=== PATIENT | female | born 1935 | race Caucasian/White ===

== ENCOUNTER → 2017-03-11 | Outpatient (CLI) | payer MEDICARE, MEDICAID ==
[~2017-03-11] MED LIST: ALPR0.25 PO; CALC-386 PO; METO25TA62 PO; OMEP20CA5 OR; RIVA20TA PO; TIOTCAP INH
[2017-03-11 09:38] LABS: Basophils # (auto) 0 uL; Basophils % (auto) 0.6 % (0.0-2.0); Eosinophils # (auto) 0.1 uL; Eosinophils % (auto) 1.1 % (0.0-7.0); Hematocrit 37.9 % (36.0-46.0); Hemoglobin 12.5 g/dL (12.2-16.2); Lymphocytes # (auto) 1.8 uL; Lymphocytes % (auto) 29.1 % (10.0-50.0); Mean Corpuscular Hemoglobin 31.1 pg (28.0-32.0); Mean Corpuscular Hgb Conc. 32.9 g/dL (32.0-36.0); Mean Corpuscular Volume 94.7 fL (80.0-100.0); Monocytes # (auto) 0.6 uL; Monocytes % (auto) 9.4 % (0.0-12.0); Neutrophils # (auto) 3.6 uL; Neutrophils % (auto) 59.8 % (37.0-80.0); Platelet Count (auto) 287 10^3/uL (140-450)
[2017-03-11 09:46] LABS: Urine Bilirubin Negative (Negative); Urine Color Yellow (Yellow); Urine Glucose Normal (Normal); Urine Ketone TRACE (Negative); Urine Mucus FEW (None Seen); Urine Nitrite Negative (Negative); Urine RBC 61 /hpf (0 - 4); Urine WBC Clumps PRESENT /hpf (None Seen)
[2017-03-11 09:55] LABS: Urine Blood 3+ /uL (Negative)
[2017-03-11 10:10] LABS: Albumin 3.2 g/dL (3.4-5.0); BUN/Creatinine Ratio 15.5; Bilirubin, Total 0.7 mg/dL (0.2-1.0); Calcium 9.3 mg/dL (8.5-10.1); Potassium 3.7 mmol/L (3.5-5.1); Total Protein 7.5 g/dL (6.4-8.2)
== END | disposition home or self-care (01) ==
LOC: LAB 08:48
DX: I10 Essential (primary) hypertension (principal)
CPT/HCPCS: 36415; 80053; 80061; 81001; 84443; 85025

== ENCOUNTER → 2017-10-07 | Outpatient (CLI) | payer MEDICARE, MEDICAID ==
[~2017-10-07] MED LIST changes: -OMEP20CA5 OR; +OMEP20CA74 OR
[2017-10-07 09:53] LABS: Allen Test Yes; Base Excess -0.1 mmol/L (-2.0-2.0); Blood 02Sat 93.8 % (96-100); Blood COHb 0.1 % (0.5-1.5); Blood MetHb 0.1 % (0.0-1.5); HCO3 24.1 mmol/L (22-26.0); HHb 6.2 % (0.0-5.0); MODE ROOM AIR; O2Hb 93.6 % (94.0-97.0); PO2 71.4 mmHg (80.0-100.0); PO2(T) 71.4 mmHg (80.0-100.0); Sample Type Arterial
== END | disposition home or self-care (01) ==
LOC: RT 09:16
PROVIDERS: ATTEND Family Medicine
DX: J44.9 Chronic obstructive pulmonary disease, unspecified (principal)
CPT/HCPCS: 36600; 82805

== ENCOUNTER → 2018-03-21 | Outpatient (CLI) | payer MEDICARE, MEDICAID ==
[2018-03-21 10:08] LABS: Albumin 3.7 g/dL (3.4-5.0); BUN/Creatinine Ratio 19.1; Bilirubin, Total 0.4 mg/dL (0.2-1.0); Calcium 9.5 mg/dL (8.5-10.1); Potassium 4.3 mmol/L (3.5-5.1); Total Protein 7.5 g/dL (6.4-8.2)
[2018-03-21 10:37] LABS: Urine Bacteria NONE SEEN /hpf (None Seen); Urine Blood Negative /uL (Negative); Urine Specific Gravity 1.008 (1.001-1.035); Urine WBC 7 /hpf (0 - 5)
[2018-03-21 14:06] LABS: Basophils # (auto) 0.1 uL; Eosinophils # (auto) 0.2 uL; Eosinophils % (auto) 4.5 % (0.0-7.0); Hematocrit 42.5 % (36.0-46.0); Hemoglobin 13.8 g/dL (12.2-16.2); Lymphocytes # (auto) 1.7 uL; Lymphocytes % (auto) 34.6 % (10.0-50.0); Mean Corpuscular Hemoglobin 30.8 pg (28.0-32.0); Mean Corpuscular Hgb Conc. 32.5 g/dL (32.0-36.0); Mean Corpuscular Volume 94.7 fL (80.0-100.0); Monocytes # (auto) 0.3 uL; Monocytes % (auto) 5.6 % (0.0-12.0); Neutrophils # (auto) 2.7 uL; Neutrophils % (auto) 53.3 % (37.0-80.0); Nucleated Red Blood Cells % 0.5 %; Platelet Count (auto) 213 10^3/uL (140-450); Red Blood Cells 4.49 10^6/uL (4.0-5.20); Red Cell Distribution Width 13.9 % (11.8-14.3)
== END | disposition home or self-care (01) ==
LOC: LAB 08:58
PROVIDERS: ATTEND Family Medicine
DX: I12.9 Hypertensive chronic kidney disease with stage 1 through stage 4 chronic kidney disease, or unspecified chronic kidney disease (principal); N18.3 Chronic kidney disease, stage 3 (moderate); I26.99 Other pulmonary embolism without acute cor pulmonale; F41.1 Generalized anxiety disorder; J44.9 Chronic obstructive pulmonary disease, unspecified
CPT/HCPCS: 36415; 80053; 80061; 81001; 82306; 82607; 84443; 85025

== ENCOUNTER 2018-04-22 10:16 | Emergency (ER) | payer MEDICARE, MEDICAID ==
[~2018-04-22] VITALS: Ht 172.7 cm; Wt 71.2 kg
[2018-04-22 10:59] LABS: Basophils # (auto) 0.1 uL; Basophils % (auto) 1.3 % (0.0-2.0); Eosinophils # (auto) 0.2 uL; Eosinophils % (auto) 2.8 % (0.0-7.0); Hematocrit 40.6 % (36.0-46.0); Hemoglobin 13.4 g/dL (12.2-16.2); Lymphocytes # (auto) 2.4 uL; Lymphocytes % (auto) 39.1 % (10.0-50.0); Mean Corpuscular Hemoglobin 30.6 pg (28.0-32.0); Mean Corpuscular Hgb Conc. 33.2 g/dL (32.0-36.0); Mean Corpuscular Volume 92.3 fL (80.0-100.0); Monocytes # (auto) 0.5 uL; Neutrophils % (auto) 48.8 % (37.0-80.0); Platelet Count (auto) 206 10^3/uL (140-450); Red Blood Cells 4.39 10^6/uL (4.0-5.20); Red Cell Distribution Width 13.6 % (11.8-14.3); White Blood Cell 6.2 10^3/uL (4.4-10.8)
[2018-04-22 11:11] LABS: Urine WBC None Seen /hpf (0 - 5)
[2018-04-22 11:15] LABS: INR 1.13 (0.9-1.15); Partial Thromboplastin Time 35.7 sec (23.78-33.04)
[2018-04-22 11:21] LABS: Urine Bacteria FEW /hpf (None Seen); Urine Blood Negative /uL (Negative); Urine Specific Gravity 1.006 (1.001-1.035)
[2018-04-22 11:23] LABS: Alanine Aminotransferase 15 U/L (13-56); Albumin 3.8 g/dL (3.4-5.0); Alkaline Phosphatase 66 U/L (45-117); Anion Gap 7 (5-15); Aspartate Aminotransferase 16 U/L (15-37); BUN/Creatinine Ratio 18.8; Bilirubin, Total 0.6 mg/dL (0.2-1.0); Blood Urea Nitrogen 33 mg/dL (7-18); Carbon Dioxide 27 mmol/L (21-32); Chloride 105 mmol/L (98-107); GFR African American 36 mL/min; GFR Non-African American 29 mL/min; Glucose 88 mg/dL (74-106); Potassium 4.1 mmol/L (3.5-5.1); Sodium 139 mmol/L (136-145); Total Protein 7.7 g/dL (6.4-8.2)
[2018-04-22 11:51] VITALS: BP 159/92
== END 2018-04-22 11:56 | disposition home or self-care (01) ==
LOC: ER 10:19
DX: R55 Syncope and collapse (principal); M19.90 Unspecified osteoarthritis, unspecified site; I12.9 Hypertensive chronic kidney disease with stage 1 through stage 4 chronic kidney disease, or unspecified chronic kidney disease; N18.9 Chronic kidney disease, unspecified; K21.9 Gastro-esophageal reflux disease without esophagitis; J44.9 Chronic obstructive pulmonary disease, unspecified; Z86.711 Personal history of pulmonary embolism
CPT/HCPCS: 36415; 70450; 71045; 80053; 81001; 83880; 84484; 85025; 85610; 85730; 93005

== ENCOUNTER → 2018-04-28 | Outpatient (CLI) | payer MEDICARE, MEDICAID | END | disposition home or self-care (01) | LOC: XY 10:25 | PROVIDERS: ATTEND Family Medicine | DX: H81.49 Vertigo of central origin, unspecified ear (principal); I12.9 Hypertensive chronic kidney disease with stage 1 through stage 4 chronic kidney disease, or unspecified chronic kidney disease; N18.3 Chronic kidney disease, stage 3 (moderate); K21.9 Gastro-esophageal reflux disease without esophagitis | CPT/HCPCS: 93886 ==

== ENCOUNTER → 2018-07-08 | Outpatient (CLI) | payer MEDICARE, MEDICAID ==
[2018-07-08 12:13] LABS: Basophils # (auto) 0.1 uL; Basophils % (auto) 1.3 % (0.0-2.0); Eosinophils # (auto) 0.1 uL; Eosinophils % (auto) 2.4 % (0.0-7.0); Hematocrit 39.9 % (36.0-46.0); Hemoglobin 13.7 g/dL (12.2-16.2); Lymphocytes # (auto) 1.7 uL; Lymphocytes % (auto) 37.9 % (10.0-50.0); Mean Corpuscular Hemoglobin 31.3 pg (28.0-32.0); Mean Corpuscular Hgb Conc. 34.4 g/dL (32.0-36.0); Monocytes # (auto) 0.2 uL; Monocytes % (auto) 5.1 % (0.0-12.0); Neutrophils # (auto) 2.5 uL; Neutrophils % (auto) 53.3 % (37.0-80.0); Nucleated Red Blood Cells % 0.1 %; Platelet Count (auto) 198 10^3/uL (140-450); Red Blood Cells 4.38 10^6/uL (4.0-5.20); Red Cell Distribution Width 14.4 % (11.8-14.3); White Blood Cell 4.6 10^3/uL (4.4-10.8)
[2018-07-08 12:32] LABS: INR 1.09 (0.9-1.15); Partial Thromboplastin Time 33.8 sec (23.78-33.04); Prothrombin Time 11.6 sec (9.27-12.13)
[2018-07-08 13:04] LABS: Albumin 3.8 g/dL (3.4-5.0); BUN/Creatinine Ratio 17.8; Bilirubin, Total 0.6 mg/dL (0.2-1.0); Calcium 9.2 mg/dL (8.5-10.1); Potassium 4.3 mmol/L (3.5-5.1); Total Protein 7.9 g/dL (6.4-8.2)
[2018-07-08 15:27] LABS: Urine Blood 1+ /uL (Negative); Urine Specific Gravity 1.013 (1.001-1.035)
== END | disposition home or self-care (01) ==
LOC: LAB 11:45
DX: Z01.82 Encounter for allergy testing (principal); H25.11 Age-related nuclear cataract, right eye; D68.4 Acquired coagulation factor deficiency; J44.9 Chronic obstructive pulmonary disease, unspecified; F41.9 Anxiety disorder, unspecified; Z79.01 Long term (current) use of anticoagulants
CPT/HCPCS: 36415; 80053; 81003; 85025; 85610; 85730

== ENCOUNTER → 2018-08-29 | Outpatient (CLI) | payer MEDICARE, MEDICAID ==
[2018-08-29 12:50] LABS: Basophils # (auto) 0.1 uL; Eosinophils # (auto) 0.1 uL; Eosinophils % (auto) 1.7 % (0.0-7.0); Hematocrit 38.4 % (36.0-46.0); Hemoglobin 12.7 g/dL (12.2-16.2); Lymphocytes % (auto) 31.6 % (10.0-50.0); Mean Corpuscular Hemoglobin 29.8 pg (28.0-32.0); Mean Corpuscular Hgb Conc. 33.2 g/dL (32.0-36.0); Mean Corpuscular Volume 89.8 fL (80.0-100.0); Monocytes # (auto) 0.6 uL; Monocytes % (auto) 8.8 % (0.0-12.0); Neutrophils # (auto) 3.6 uL; Neutrophils % (auto) 56.9 % (37.0-80.0); Nucleated Red Blood Cells % 0.1 %; Platelet Count (auto) 278 10^3/uL (140-450); Red Blood Cells 4.27 10^6/uL (4.0-5.20); Red Cell Distribution Width 14.5 % (11.8-14.3); White Blood Cell 6.4 10^3/uL (4.4-10.8)
[2018-08-29 13:09] LABS: INR 1.09 (0.9-1.15); Partial Thromboplastin Time 33.9 sec (23.78-33.04); Prothrombin Time 11.6 sec (9.27-12.13)
[2018-08-29 13:12] LABS: Urine Blood Negative /uL (Negative); Urine Specific Gravity 1.005 (1.001-1.035)
[2018-08-29 13:22] LABS: Albumin 3.6 g/dL (3.4-5.0); Calcium 8.6 mg/dL (8.5-10.1)
[2018-08-29 13:24] LABS: BUN/Creatinine Ratio 17.2
[2018-08-29 13:54] LABS: Bilirubin, Total 0.5 mg/dL (0.2-1.0); Total Protein 7.5 g/dL (6.4-8.2)
== END | disposition home or self-care (01) ==
LOC: LAB 12:25
PROVIDERS: ATTEND Specialist
DX: Z01.812 Encounter for preprocedural laboratory examination (principal); H25.12 Age-related nuclear cataract, left eye; D68.311 Acquired hemophilia; Z79.01 Long term (current) use of anticoagulants; J43.9 Emphysema, unspecified; Z87.891 Personal history of nicotine dependence
CPT/HCPCS: 36415; 80053; 81003; 85025; 85610; 85730

== ENCOUNTER → 2019-03-18 | Outpatient (CLI) | payer MEDICARE, MEDICAID ==
[2019-03-18 09:16] LABS: Basophils # (auto) 0.1 uL; Eosinophils # (auto) 0.1 uL; Hematocrit 41.2 % (36.0-46.0); Hemoglobin 13.7 g/dL (12.2-16.2); Lymphocytes # (auto) 1.8 uL; Lymphocytes % (auto) 26.3 % (10.0-50.0); Mean Corpuscular Hemoglobin 31.6 pg (28.0-32.0); Mean Corpuscular Hgb Conc. 33.3 g/dL (32.0-36.0); Mean Corpuscular Volume 94.6 fL (80.0-100.0); Monocytes # (auto) 0.5 uL; Monocytes % (auto) 7.5 % (0.0-12.0); Neutrophils # (auto) 4.3 uL; Neutrophils % (auto) 63.2 % (37.0-80.0); Nucleated Red Blood Cells % 0.1 %; Platelet Count (auto) 251 10^3/uL (140-450); Red Blood Cells 4.35 10^6/uL (4.0-5.20); Red Cell Distribution Width 15.1 % (11.8-14.3); White Blood Cell 6.8 10^3/uL (4.4-10.8)
[2019-03-18 09:30] LABS: Urine Bacteria MANY /hpf (None Seen); Urine Blood TRACE /uL (Negative); Urine Specific Gravity 1.009 (1.001-1.035); Urine WBC 116 /hpf (0 - 5); Urine WBC Clumps PRESENT /hpf (None Seen)
[2019-03-18 09:39] LABS: Potassium 3.8 mmol/L (3.5-5.1)
[2019-03-18 09:55] LABS: Albumin 3.9 g/dL (3.4-5.0); BUN/Creatinine Ratio 16.8; Bilirubin, Total 0.7 mg/dL (0.2-1.0); Calcium 9.4 mg/dL (8.5-10.1)
== END | disposition home or self-care (01) ==
LOC: LAB 07:48
PROVIDERS: ATTEND Family Medicine
DX: I48.0 Paroxysmal atrial fibrillation (principal); K21.9 Gastro-esophageal reflux disease without esophagitis; I10 Essential (primary) hypertension
CPT/HCPCS: 36415; 80053; 80061; 81001; 82607; 85025

== ENCOUNTER 2019-08-21 18:35 | Emergency (ER) | payer MEDICARE, MEDICAID ==
[~2019-08-21] VITALS: Ht 172.7 cm; Wt 71.2 kg
[2019-08-21 19:27] VITALS: BP 206/116
[2019-08-21] MEDS ORDERED: cloNIDine HCL 0.1 MG TAB PO ONE (19:30)
[2019-08-21 20:54] LABS: Basophils # (auto) 0.1 uL; Basophils % (auto) 1.2 % (0.0-2.0); Eosinophils # (auto) 0.1 uL; Eosinophils % (auto) 1.6 % (0.0-7.0); Hematocrit 39.6 % (36.0-46.0); Hemoglobin 13.1 g/dL (12.2-16.2); Lymphocytes # (auto) 1.7 uL; Lymphocytes % (auto) 33.1 % (10.0-50.0); Mean Corpuscular Hemoglobin 32.7 pg (28.0-32.0); Mean Corpuscular Hgb Conc. 33.2 g/dL (32.0-36.0); Mean Corpuscular Volume 98.6 fL (80.0-100.0); Monocytes # (auto) 0.4 uL; Neutrophils # (auto) 2.9 uL; Neutrophils % (auto) 56.1 % (37.0-80.0); Platelet Count (auto) 230 10^3/uL (140-450); Red Blood Cells 4.02 10^6/uL (4.0-5.20); Red Cell Distribution Width 14.9 % (11.8-14.3); White Blood Cell 5.2 10^3/uL (4.4-10.8)
[2019-08-21 21:05] LABS: Chloride 106 mmol/L (98-107); Potassium 4.2 mmol/L (3.5-5.1); Sodium 138 mmol/L (136-145)
[2019-08-21 21:14] LABS: Alanine Aminotransferase 15 U/L (13-56); Albumin 3.8 g/dL (3.4-5.0); Alkaline Phosphatase 69 U/L (45-117); Anion Gap 9 (5-15); Aspartate Aminotransferase 21 U/L (15-37); BUN/Creatinine Ratio 20.8; Bilirubin, Total 0.4 mg/dL (0.2-1.0); Blood Urea Nitrogen 36 mg/dL (7-18); Calcium 9.2 mg/dL (8.5-10.1); Carbon Dioxide 23 mmol/L (21-32); GFR African American 36 mL/min; GFR Non-African American 30 mL/min; Glucose 95 mg/dL (74-106)
== END 2019-08-21 23:09 | disposition left against medical advice (07) ==
LOC: ER 18:37
DX: S46.911A Strain of unspecified muscle, fascia and tendon at shoulder and upper arm level, right arm, initial encounter (principal); R51 Headache; Z53.21 Procedure and treatment not carried out due to patient leaving prior to being seen by health care provider; V43.62XA Car passenger injured in collision with other type car in traffic accident, initial encounter; Y93.89 Activity, other specified; Y92.89 Other specified places as the place of occurrence of the external cause; Y99.8 Other external cause status
CPT/HCPCS: 36415; 70450; 71045; 72125; 73090; 80053; 84484; 85025

== ENCOUNTER 2023-10-24 15:40 | Emergency (ER) | payer MEDICARE, MEDICAID ==
[~2023-10-24] VITALS: Ht 172.7 cm; Wt 62.3 kg
[~2023-10-24 15:40] MED LIST changes: -METO25TA62 PO; +METO25TA93 PO
[2023-10-24 16:28] VITALS: BP 139/104; PULSE 98; RESP 18; O2SAT 98
[2023-10-24] MEDS ORDERED: DexAMETHasone SOD PHOS 10MG/1ML VIAL INJ IM ONE (16:45)
[2023-10-24 17:49] LABS: Basophils # (auto) 0.1 10 ^3/uL (0-0.2); Basophils % (auto) 1.3 % (0.0-2.0); Eosinophils # (auto) 0.1 10 ^3/uL (0-0.8); Eosinophils % (auto) 1.2 % (0.0-7.0); Hematocrit 39.5 % (36.0-46.0); Hemoglobin 13.1 g/dL (12.2-16.2); Lymphocytes # (auto) 1.8 10 ^3/uL (0.4-5.4); Lymphocytes % (auto) 24.2 % (10.0-50.0); Mean Corpuscular Hemoglobin 33.4 pg (28.0-32.0); Mean Corpuscular Hgb Conc. 33.1 g/dL (32.0-36.0); Mean Corpuscular Volume 100.9 fL (80.0-100.0); Monocytes # (auto) 0.6 10 ^3/uL (0-1.3); Monocytes % (auto) 8.6 % (0.0-12.0); Neutrophils # (auto) 4.8 10 ^3/uL (1.6-8.6); Neutrophils % (auto) 64.7 % (37.0-80.0); Nucleated Red Blood Cells % 0.2 %; Red Blood Cells 3.91 10^6/uL (4.0-5.20); Red Cell Distribution Width 14.3 % (11.8-14.3); White Blood Cell 7.4 10^3/uL (4.4-10.8)
[2023-10-24 18:25] LABS: Albumin 4.5 g/dL (3.2-4.8); Alkaline Phosphatase 73 U/L (46-116); Anion Gap 13 (5-15); Aspartate Aminotransferase 16 U/L (13-40); BUN/Creatinine Ratio 14.9 (10.0-20.0); Bilirubin, Total 0.7 mg/dL (0.2-1.0); Blood Urea Nitrogen 28 mg/dL (9-23); Calcium 9.5 mg/dL (8.7-10.4); Carbon Dioxide 21 mmol/L (20-30); Chloride 101 mmol/L (98-107); Glucose 82 mg/dL (74-106); Lipase 55 U/L (12-53); Potassium 4.2 mmol/L (3.5-5.1); Sodium 135 mmol/L (136-145); Total Protein 7.7 g/dL (5.7-8.2); Uric Acid 8.5 mg/dL (3.1-7.8)
[2023-10-24 18:38] LABS: Alanine Aminotransferase < 9 U/L (7-40)
== END 2023-10-24 22:27 | disposition left against medical advice (07) ==
LOC: ER 15:40
DX: M79.645 Pain in left finger(s) (principal); M79.672 Pain in left foot; R22.42 Localized swelling, mass and lump, left lower limb; Z53.21 Procedure and treatment not carried out due to patient leaving prior to being seen by health care provider
CPT/HCPCS: 36415; 73130; 73630; 80053; 83690; 83880; 84484; 84550; 85025; 99281; J1100

== ENCOUNTER 2023-10-28 09:43 | Emergency (ER) | payer MEDICARE, MEDICAID ==
[~2023-10-28] VITALS: Ht 172.7 cm; Wt 62.8 kg
[2023-10-28 10:21] VITALS: BP 140/80; PULSE 107; RESP 20; TEMP 97.7; O2SAT 97
[2023-10-28] MEDS ORDERED: CEPH500T PO (12:35)
[2023-10-28] MEDS ORDERED: cefTRIAXone SOD 500 MG VL IM ONE (12:45)
== END 2023-10-28 12:55 | disposition home or self-care (01) ==
LOC: ER 09:43
DX: R22.32 Localized swelling, mass and lump, left upper limb (principal); J44.9 Chronic obstructive pulmonary disease, unspecified; I10 Essential (primary) hypertension; K21.9 Gastro-esophageal reflux disease without esophagitis; Z87.891 Personal history of nicotine dependence; Z79.899 Other long term (current) drug therapy
CPT/HCPCS: 73130; 96372; 99283; J0696

== ENCOUNTER 2024-05-23 22:05 | Emergency (ER) | payer OTHER, MEDICAID ==
[~2024-05-23] VITALS: Ht 172.7 cm; Wt 65.0 kg
[2024-05-23] MEDS: ONDANSETRON ODT 4 MG TAB PO ONE (00:15)
[2024-05-23] MEDS: HYDROcodone-ACET 5/325MG TAB PO ONE (00:15)
[~2024-05-23 22:05] MED LIST changes: +CEPH500T PO
[2024-05-23 22:17] VITALS: RESP 18; O2SAT 98
[2024-05-23 23:00] VITALS: TEMP 98.9
[2024-05-23] MEDS: LIDOCAINE 1% HCL (LOCAL ANESTH.) INJ 20ML MDV SC ONE (23:45)
[2024-05-24] MEDS: LIDOCAINE W/ EPINEPHRINE 1.5 % INJ 5ML AMP IJ ONE (03:05)
[2024-05-24] MEDS: LIDOCAINE W/ EPINEPHRINE 1% 20ML VIAL ONE (03:05)
[2024-05-24] MEDS ORDERED: ACET-1304 PO (03:13)
[2024-05-24 04:00] VITALS: BP 173/71; PULSE 63; RESP 13; O2SAT 95
== END 2024-05-24 04:10 | disposition home or self-care (01) ==
LOC: EDBD 22:05 → ER 22:05
DX: S81.812A Laceration without foreign body, left lower leg, initial encounter (principal); J44.9 Chronic obstructive pulmonary disease, unspecified; K21.9 Gastro-esophageal reflux disease without esophagitis; I12.9 Hypertensive chronic kidney disease with stage 1 through stage 4 chronic kidney disease, or unspecified chronic kidney disease; N18.9 Chronic kidney disease, unspecified; Z87.891 Personal history of nicotine dependence; W26.8XXA Contact with other sharp object(s), not elsewhere classified, initial encounter; Y93.89 Activity, other specified; Y92.89 Other specified places as the place of occurrence of the external cause; Y99.8 Other external cause status
CPT/HCPCS: 12002; 99285; J2001; Q0162

== ENCOUNTER 2024-06-21 13:07 | Inpatient (IN) | payer OTHER, MEDICAID ==
[~2024-06-21] VITALS: Ht 172.7 cm; Wt 59.4 kg
[~2024-06-21 13:07] MED LIST changes: +ACET-1304 PO
[2024-06-21 13:40] VITALS: PULSE 91; RESP 18; O2SAT 96
[2024-06-21 14:04] LABS: Basophils # (auto) 0.1 10 ^3/uL (0-0.2); Basophils % (auto) 0.7 % (0.0-2.0); Eosinophils # (auto) 0.4 10 ^3/uL (0-0.8); Eosinophils % (auto) 2.7 % (0.0-7.0); Hematocrit 32.1 % (36.0-46.0); Hemoglobin 10.7 g/dL (12.2-16.2); Lymphocytes # (auto) 0.7 10 ^3/uL (0.4-5.4); Lymphocytes % (auto) 5.3 % (10.0-50.0); Mean Corpuscular Hemoglobin 31.2 pg (28.0-32.0); Mean Corpuscular Hgb Conc. 33.2 g/dL (32.0-36.0); Monocytes # (auto) 0.3 10 ^3/uL (0-1.3); Monocytes % (auto) 2.4 % (0.0-12.0); Neutrophils # (auto) 11.5 10 ^3/uL (1.6-8.6); Neutrophils % (auto) 88.9 % (37.0-80.0); Platelet Count (auto) 269 10^3/uL (140-450); Red Blood Cells 3.42 10^6/uL (4.0-5.20); Red Cell Distribution Width 15.7 % (11.8-14.3); White Blood Cell 12.9 10^3/uL (4.4-10.8)
[2024-06-21 14:20] LABS: Alanine Aminotransferase 18 U/L (7-40); Albumin 3.5 g/dL (3.2-4.8); Alkaline Phosphatase 72 U/L (46-116); Anion Gap 8 (5-15); Aspartate Aminotransferase 41 U/L (13-40); BUN/Creatinine Ratio 12.6 (10.0-20.0); Bilirubin, Total 0.5 mg/dL (0.2-1.0); Blood Urea Nitrogen 22 mg/dL (9-23); Carbon Dioxide 24 mmol/L (20-30); Chloride 106 mmol/L (98-107); Glucose 137 mg/dL (74-106); Potassium 4.1 mmol/L (3.5-5.1); Sodium 138 mmol/L (136-145)
[2024-06-21] MEDS: CEFEPIME 2GM/50ML NS 50 ML IV ONE (15:45)
[2024-06-21] MEDS: AZITHROMYCIN 250 MG TAB PO ONE (15:46)
[2024-06-21] MEDS ORDERED: NITROGLYCERIN 0.4 MG SL TAB SL PRN (18:00)
[2024-06-21] MEDS ORDERED: MORPHINE SULFATE INJ 2 MG/ml SYRG IV PRN (18:00)
[2024-06-21] MEDS ORDERED: ONDANSETRON HCL 4 MG/2 ML VIAL IV PRN (18:00)
[2024-06-21] MEDS: PIPERACILLIN-TAZOB 3.375GM 100 ML IV ONE (18:33)
[2024-06-21 19:20] LABS: Erythrocyte Sedimentation Rate 73 mm/hr (0-20)
[2024-06-21 19:30] VITALS: PULSE 91; RESP 18; O2SAT 96
[2024-06-21] MEDS: SODIUM CHLOR 0.9% PF (SALINE LOCK) 10ML VIAL/SYR IV SCH (21:43)
[2024-06-21] MEDS ORDERED: METOPROLOL SUCCINATE XL 50 MG TAB PO SCH (22:00)
[2024-06-22] VITALS (12 sets, daily range): BP systolic 98–134; BP diastolic 52–77; PULSE 72–96; RESP 17–20; TEMP 98.1–100.7; O2SAT 0–97
[2024-06-22] MEDS: PIPERACILLIN-TAZOB 3.375GM 100 ML IV SCH (02:22)
[2024-06-22] MEDS: PANTOPRAZOLE 40 MG TAB PO SCH (06:37)
[2024-06-22] MEDS ORDERED: ZOFR4T PO (07:21)
[2024-06-22] MEDS ORDERED: FAMO-12 PO (07:21)
[2024-06-22] MEDS ORDERED: GLAT1INJ SC (08:14)
[2024-06-22 08:34] LABS: Basophils # (auto) 0 10 ^3/uL (0-0.2); Basophils % (auto) 0.3 % (0.0-2.0); Eosinophils # (auto) 0.3 10 ^3/uL (0-0.8); Eosinophils % (auto) 2.8 % (0.0-7.0); Hematocrit 28.8 % (36.0-46.0); Hemoglobin 9.6 g/dL (12.2-16.2); Lymphocytes % (auto) 8.5 % (10.0-50.0); Mean Corpuscular Hemoglobin 31.1 pg (28.0-32.0); Mean Corpuscular Hgb Conc. 33.3 g/dL (32.0-36.0); Mean Corpuscular Volume 93.5 fL (80.0-100.0); Monocytes # (auto) 0.6 10 ^3/uL (0-1.3); Monocytes % (auto) 4.7 % (0.0-12.0); Neutrophils # (auto) 9.8 10 ^3/uL (1.6-8.6); Neutrophils % (auto) 83.7 % (37.0-80.0); Platelet Count (auto) 255 10^3/uL (140-450); Red Blood Cells 3.08 10^6/uL (4.0-5.20); Red Cell Distribution Width 15.4 % (11.8-14.3); White Blood Cell 11.7 10^3/uL (4.4-10.8)
[2024-06-22 09:28] LABS: Triglycerides 103 mg/dL (< 150)
[2024-06-22 09:29] LABS: LDL Cholesterol 41 mg/dL (< 100)
[2024-06-22 09:30] LABS: Cholesterol 98 mg/dL (< 200); HDL Cholesterol 25 mg/dL (40-59)
[2024-06-22] MEDS ORDERED: VANCOMYCIN PER PHARMACY 0 MG IV SCH (10:45)
[2024-06-22] MEDS: VANCOMYCIN 1GM/200ML 200 ML IV ONE (12:43)
[2024-06-22] MEDS: RIVAROXABAN 20 MG TAB PO SCH (17:04)
[2024-06-22] MEDS: CEFEPIME 2GM/50ML 50 ML IV SCH (21:22)
[2024-06-22] MEDS: METOPROLOL TARTRATE 25 MG TAB PO SCH (21:24)
[2024-06-22] MEDS: ACETAMINOPHEN 325 MG TAB PO PRN (21:25)
[2024-06-22] MEDS ORDERED: CEFEPIME 1GM/ 50ML 50 ML IV SCH (22:00)
[2024-06-23] VITALS (8 sets, daily range): BP systolic 108–150; BP diastolic 45–72; PULSE 64–85; RESP 16–20; TEMP 97.3–98; O2SAT 90–99
[2024-06-23 06:52] LABS: Chloride 110 mmol/L (98-107); Potassium 4.1 mmol/L (3.5-5.1); Sodium 139 mmol/L (136-145)
[2024-06-23 06:53] LABS: Anion Gap 7 (5-15); Carbon Dioxide 22 mmol/L (20-30)
[2024-06-23 06:54] LABS: Calcium 8.2 mg/dL (8.7-10.4)
[2024-06-23 06:59] LABS: BUN/Creatinine Ratio 18.3 (10.0-20.0); Blood Urea Nitrogen 23 mg/dL (9-23); Glucose 95 mg/dL (74-106)
[2024-06-23 07:00] LABS: Basophils # (auto) 0.1 10 ^3/uL (0-0.2); Basophils % (auto) 0.7 % (0.0-2.0); Eosinophils # (auto) 0.5 10 ^3/uL (0-0.8); Eosinophils % (auto) 4.2 % (0.0-7.0); Hematocrit 29.9 % (36.0-46.0); Hemoglobin 9.7 g/dL (12.2-16.2); Lymphocytes # (auto) 1.1 10 ^3/uL (0.4-5.4); Lymphocytes % (auto) 9.7 % (10.0-50.0); Mean Corpuscular Hemoglobin 30.9 pg (28.0-32.0); Mean Corpuscular Hgb Conc. 32.4 g/dL (32.0-36.0); Mean Corpuscular Volume 95.5 fL (80.0-100.0); Monocytes # (auto) 0.6 10 ^3/uL (0-1.3); Monocytes % (auto) 5.5 % (0.0-12.0); Neutrophils # (auto) 9.4 10 ^3/uL (1.6-8.6); Neutrophils % (auto) 79.9 % (37.0-80.0); Platelet Count (auto) 261 10^3/uL (140-450); Red Blood Cells 3.13 10^6/uL (4.0-5.20); Red Cell Distribution Width 15.8 % (11.8-14.3); White Blood Cell 11.7 10^3/uL (4.4-10.8)
[2024-06-23] MEDS: PHOSPHORUS PO SCH (10:00)
[2024-06-23] MEDS: VITAMI PO SCH (10:00)
[2024-06-23] MEDS: TIOTROPIUM BROMIDE MONOHYDRATE IN SCH (10:00)
[2024-06-23] MEDS: CALCIUM PO SCH (10:00)
[2024-06-23] MEDS: [UNRECOGNIZED DRUG - OTHER] PO SCH (10:00)
[2024-06-23] MEDS: VANCOMYCIN 1GM/200ML 200 ML IV SCH (13:17)
[2024-06-23] MEDS: HYDROcodone-ACET 5/325MG TAB PO PRN (15:29)
[2024-06-23] MEDS: ATORVASTATIN 20 MG TAB PO SCH (21:25)
[2024-06-24 01:00] VITALS: BP 124/61; PULSE 69; RESP 18; TEMP 97.9; O2SAT 97
[2024-06-24 05:00] VITALS: BP 138/66; PULSE 74; RESP 18; TEMP 97.9; O2SAT 93
[2024-06-24 06:28] LABS: Basophils # (auto) 0.1 10 ^3/uL (0-0.2); Basophils % (auto) 0.9 % (0.0-2.0); Eosinophils # (auto) 0.4 10 ^3/uL (0-0.8); Eosinophils % (auto) 3.2 % (0.0-7.0); Hematocrit 28.4 % (36.0-46.0); Hemoglobin 9.5 g/dL (12.2-16.2); Lymphocytes # (auto) 1.2 10 ^3/uL (0.4-5.4); Lymphocytes % (auto) 9.5 % (10.0-50.0); Mean Corpuscular Hemoglobin 30.9 pg (28.0-32.0); Mean Corpuscular Hgb Conc. 33.5 g/dL (32.0-36.0); Mean Corpuscular Volume 92.3 fL (80.0-100.0); Monocytes # (auto) 0.7 10 ^3/uL (0-1.3); Monocytes % (auto) 5.6 % (0.0-12.0); Neutrophils # (auto) 10.4 10 ^3/uL (1.6-8.6); Neutrophils % (auto) 80.8 % (37.0-80.0); Platelet Count (auto) 266 10^3/uL (140-450); Red Blood Cells 3.08 10^6/uL (4.0-5.20); Red Cell Distribution Width 15.8 % (11.8-14.3); White Blood Cell 12.8 10^3/uL (4.4-10.8)
[2024-06-24 06:39] LABS: Anion Gap 9 (5-15); Carbon Dioxide 23 mmol/L (20-30); Chloride 105 mmol/L (98-107); Potassium 3.9 mmol/L (3.5-5.1); Sodium 137 mmol/L (136-145)
[2024-06-24 06:41] LABS: Calcium 8.7 mg/dL (8.7-10.4)
[2024-06-24 06:46] LABS: Blood Urea Nitrogen 22 mg/dL (9-23); Glucose 103 mg/dL (74-106)
[2024-06-24 08:30] VITALS: BP 132/73; PULSE 77; RESP 16; TEMP 98.9; O2SAT 95
[2024-06-24] MEDS: ASPirin 81 mg TAB PO SCH (09:11)
[2024-06-24 12:30] VITALS: BP 109/58; PULSE 66; RESP 15; TEMP 98; O2SAT 94
[2024-06-24 16:25] VITALS: BP 130/65; PULSE 79; RESP 15; TEMP 98.1; O2SAT 94
[2024-06-24] MEDS: MAGNESIUM SULFATE 1GM/100ML 100 ML IV ONE (18:10)
[2024-06-24 21:00] VITALS: BP 108/63; PULSE 66; RESP 17; TEMP 98.3; O2SAT 92
[2024-06-25 01:00] VITALS: BP 104/64; PULSE 69; RESP 18; TEMP 98.6; O2SAT 96
[2024-06-25 05:00] VITALS: BP_SYST 107; BP_SYST 120; BP_DIAS 52; BP_DIAS 71; PULSE 79; PULSE 91; RESP 17; RESP 18; TEMP 98.4; TEMP 98.6; O2SAT 94; O2SAT 96
[2024-06-25 06:19] LABS: Basophils # (auto) 0 10 ^3/uL (0-0.2); Basophils % (auto) 0.4 % (0.0-2.0); Eosinophils # (auto) 0.2 10 ^3/uL (0-0.8); Eosinophils % (auto) 1.4 % (0.0-7.0); Hematocrit 25.9 % (36.0-46.0); Hemoglobin 8.7 g/dL (12.2-16.2); Lymphocytes # (auto) 1.1 10 ^3/uL (0.4-5.4); Lymphocytes % (auto) 8.9 % (10.0-50.0); Mean Corpuscular Hemoglobin 31.2 pg (28.0-32.0); Mean Corpuscular Hgb Conc. 33.6 g/dL (32.0-36.0); Mean Corpuscular Volume 92.8 fL (80.0-100.0); Monocytes # (auto) 0.9 10 ^3/uL (0-1.3); Neutrophils # (auto) 10.1 10 ^3/uL (1.6-8.6); Neutrophils % (auto) 82.3 % (37.0-80.0); Nucleated Red Blood Cells % 0.1 %; Platelet Count (auto) 324 10^3/uL (140-450); Red Cell Distribution Width 15.4 % (11.8-14.3); White Blood Cell 12.3 10^3/uL (4.4-10.8)
[2024-06-25 06:32] LABS: Anion Gap 11 (5-15); Carbon Dioxide 21 mmol/L (20-30); Chloride 103 mmol/L (98-107); Sodium 135 mmol/L (136-145)
[2024-06-25 06:34] LABS: Calcium 8.9 mg/dL (8.7-10.4)
[2024-06-25 06:38] LABS: Blood Urea Nitrogen 22 mg/dL (9-23); Glucose 114 mg/dL (74-106)
[2024-06-25 09:00] VITALS: BP 95/53; PULSE 102; RESP 16; TEMP 98.1; O2SAT 99
[2024-06-25 12:45] LABS: Body Fluid Polymorphonuclear 60 % (0-25)
[2024-06-25 12:49] LABS: Body Fluid Red Blood Cells 43 CUMM (0-2000); Body Fluid White Blood Cells 2900 CUMM (0-200)
[2024-06-25 13:00] VITALS: BP 109/64; PULSE 82; RESP 18; TEMP 97.8; O2SAT 93
[2024-06-25] MEDS ORDERED: ATOR20TA50 PO (14:22)
[2024-06-25] MEDS ORDERED: ACET-1882 PO (14:22)
[2024-06-25] MEDS ORDERED: DOXY-286 PO (14:22)
[2024-06-25] MEDS ORDERED: LEVO750T40 PO (14:22)
[2024-06-25] MEDS ORDERED: ASPI-325 PO (14:22)
[2024-06-25 17:00] VITALS: BP 106/62; PULSE 100; RESP 18; TEMP 97.9; O2SAT 98
[2024-06-25 21:00] VITALS: BP 120/52; PULSE 99; RESP 18; TEMP 97.7; O2SAT 94
[2024-06-26] VITALS (8 sets, daily range): BP systolic 106–144; BP diastolic 45–57; PULSE 87–115; RESP 17–20; TEMP 97.6–98.3; O2SAT 93–97
[2024-06-26] MEDS: MELATONIN 5 MG TAB PO ONE (00:33)
[2024-06-26 06:06] LABS: Anion Gap 9 (5-15); Carbon Dioxide 21 mmol/L (20-30); Chloride 105 mmol/L (98-107); Sodium 135 mmol/L (136-145)
[2024-06-26 06:07] LABS: Calcium 8.6 mg/dL (8.7-10.4)
[2024-06-26 06:12] LABS: BUN/Creatinine Ratio 18.8 (10.0-20.0); Blood Urea Nitrogen 31 mg/dL (9-23); Glucose 101 mg/dL (74-106)
[2024-06-26 07:47] LABS: Hematocrit 20.4 % (36.0-46.0); Mean Corpuscular Hgb Conc. 33.4 g/dL (32.0-36.0); Mean Corpuscular Volume 92.9 fL (80.0-100.0); Platelet Count (auto) 318 10^3/uL (140-450); Red Blood Cells 2.19 10^6/uL (4.0-5.20); Red Cell Distribution Width 15.7 % (11.8-14.3); White Blood Cell 11.9 10^3/uL (4.4-10.8)
[2024-06-26 07:53] LABS: Hemoglobin 6.8 g/dL (12.2-16.2)
[2024-06-26 07:55] LABS: Basophils % (manual) 0 (0.0-2.0); Blast Cells 0; Metamyelocytes % 0; Myelocytes % 0; Promyelocytes % 0; Reactive Lymphocytes 0
[2024-06-26 08:32] LABS: Band Neutrophils % (manual) 3; Eosinophils % (manual) 3 (0-7); Lymphocytes % (manual) 10 (10.0-50.0); Monocytes % (manual) 7 (0-12)
[2024-06-26 08:34] LABS: Anisocytosis Slight; Platelet Estimate Adequate
[2024-06-26 09:01] LABS: % Iron Saturation 17.7 % (15-50)
[2024-06-26] MEDS: PANTOPRAZOLE 40 MG/10 ML VIAL INJ IV SCH (10:17)
[2024-06-26] MEDS: SODIUM FERR GLUC 62.5MG/5ML 110 ML IV SCH (12:29)
[2024-06-26 15:05] LABS: Hematocrit 20.4 % (36.0-46.0); Mean Corpuscular Hemoglobin 31.1 pg (28.0-32.0); Mean Corpuscular Hgb Conc. 32.9 g/dL (32.0-36.0); Mean Corpuscular Volume 94.4 fL (80.0-100.0); Platelet Count (auto) 324 10^3/uL (140-450); Red Blood Cells 2.16 10^6/uL (4.0-5.20); White Blood Cell 12.2 10^3/uL (4.4-10.8)
[2024-06-26 15:12] LABS: Hemoglobin 6.7 g/dL (12.2-16.2)
[2024-06-26 15:13] LABS: Band Neutrophils % (manual) 0; Basophils % (manual) 0 (0.0-2.0); Blast Cells 0; Metamyelocytes % 0; Myelocytes % 0; Promyelocytes % 0; Reactive Lymphocytes 0
[2024-06-26 16:25] LABS: Eosinophils % (manual) 4 (0-7); Lymphocytes % (manual) 12 (10.0-50.0); Monocytes % (manual) 7 (0-12)
[2024-06-26 16:26] LABS: Platelet Estimate Adequate
[2024-06-26] MEDS: DOCUSATE SOD 100 MG CAP PO PRN (17:01)
[2024-06-26 18:17] LABS: COVID19 ANTIGEN SOFIA FIA NEGATIVE (NEGATIVE)
[2024-06-26] MEDS: MELATONIN 5 MG TAB PO SCH (21:35)
[2024-06-27] VITALS (9 sets, daily range): BP systolic 108–150; BP diastolic 43–77; PULSE 74–95; RESP 16–20; TEMP 97.6–98.5; O2SAT 95–100
[2024-06-27 06:50] LABS: Mean Corpuscular Volume 93.4 fL (80.0-100.0)
[2024-06-27 06:53] LABS: Hematocrit 19.3 % (36.0-46.0); Mean Corpuscular Hemoglobin 31.8 pg (28.0-32.0); Mean Corpuscular Hgb Conc. 34.1 g/dL (32.0-36.0); Platelet Count (auto) 345 10^3/uL (140-450); Red Blood Cells 2.07 10^6/uL (4.0-5.20); Red Cell Distribution Width 16.4 % (11.8-14.3); White Blood Cell 10.1 10^3/uL (4.4-10.8)
[2024-06-27 06:56] LABS: Hemoglobin 6.6 g/dL (12.2-16.2)
[2024-06-27 06:58] LABS: Band Neutrophils % (manual) 0; Basophils % (manual) 0 (0.0-2.0); Blast Cells 0; Metamyelocytes % 0; Myelocytes % 0; Promyelocytes % 0; Reactive Lymphocytes 0
[2024-06-27 07:13] LABS: Alanine Aminotransferase 18 U/L (7-40); Albumin 3.2 g/dL (3.2-4.8); Alkaline Phosphatase 84 U/L (46-116); Anion Gap 12 (5-15); Aspartate Aminotransferase 21 U/L (13-40); BUN/Creatinine Ratio 20.2 (10.0-20.0); Blood Urea Nitrogen 33 mg/dL (9-23); Calcium 8.9 mg/dL (8.7-10.4); Carbon Dioxide 18 mmol/L (20-30); Chloride 106 mmol/L (98-107); Glucose 145 mg/dL (74-106); Potassium 3.9 mmol/L (3.5-5.1); Sodium 136 mmol/L (136-145)
[2024-06-27 07:14] LABS: Bilirubin, Total 0.4 mg/dL (0.2-1.0); Total Protein 5.4 g/dL (5.7-8.2)
[2024-06-27 07:16] LABS: % Iron Saturation 31.6 % (15-50)
[2024-06-27 07:25] LABS: Anisocytosis Slight; Eosinophils % (manual) 5 (0-7); Lymphocytes % (manual) 13 (10.0-50.0); Monocytes % (manual) 7 (0-12); Platelet Estimate Adequate
[2024-06-27] MEDS: LORATADINE 10 MG TAB PO SCH (09:45)
[2024-06-28 01:00] VITALS: BP 122/63; PULSE 85; RESP 20; TEMP 98.5; O2SAT 97
[2024-06-28 05:00] VITALS: BP 148/79; PULSE 81; RESP 18; TEMP 97.8; O2SAT 95
[2024-06-28] MEDS: PANTOPRAZOLE 40 MG TAB PO SCH (05:12)
[2024-06-28 08:44] VITALS: BP 159/83; PULSE 115; RESP 16; TEMP 97.8; O2SAT 95
[2024-06-28 10:49] LABS: Chloride 109 mmol/L (98-107); Hemoglobin 8.4 g/dL (12.2-16.2); Mean Corpuscular Hgb Conc. 33.7 g/dL (32.0-36.0); Potassium 4.3 mmol/L (3.5-5.1); Red Blood Cells 2.72 10^6/uL (4.0-5.20); Red Cell Distribution Width 16.2 % (11.8-14.3); Sodium 139 mmol/L (136-145)
[2024-06-28 10:50] LABS: Anion Gap 9 (5-15); Carbon Dioxide 21 mmol/L (20-30); Mean Corpuscular Volume 91.9 fL (80.0-100.0); Platelet Count (auto) 393 10^3/uL (140-450); White Blood Cell 9.1 10^3/uL (4.4-10.8)
[2024-06-28 10:53] LABS: Basophils % (manual) 0 (0.0-2.0); Blast Cells 0; Metamyelocytes % 0; Myelocytes % 0; Promyelocytes % 0; Reactive Lymphocytes 0
[2024-06-28 10:55] LABS: BUN/Creatinine Ratio 20.9 (10.0-20.0); Blood Urea Nitrogen 34 mg/dL (9-23); Glucose 136 mg/dL (74-106)
[2024-06-28 11:00] LABS: Anisocytosis Slight; Band Neutrophils % (manual) 1; Eosinophils % (manual) 7 (0-7); Lymphocytes % (manual) 13 (10.0-50.0); Monocytes % (manual) 5 (0-12); Platelet Estimate Adequate
[2024-06-28 13:00] VITALS: BP 103/51; PULSE 70; RESP 16; TEMP 98.1; O2SAT 94
[2024-06-28 17:00] VITALS: BP 101/45; PULSE 95; RESP 18; TEMP 98.1; O2SAT 95
[2024-06-28 21:00] VITALS: BP 114/64; PULSE 115; RESP 20; TEMP 97.9; O2SAT 94
[2024-06-29 01:00] VITALS: BP 145/67; PULSE 89; RESP 20; TEMP 98.1; O2SAT 96
[2024-06-29 05:00] VITALS: BP 150/73; PULSE 77; RESP 20; TEMP 97.7; O2SAT 96
[2024-06-29 07:09] LABS: Hemoglobin 8.1 g/dL (12.2-16.2); Red Blood Cells 2.56 10^6/uL (4.0-5.20); White Blood Cell 8.7 10^3/uL (4.4-10.8)
[2024-06-29 07:18] LABS: Anion Gap 6 (5-15); Calcium 9.3 mg/dL (8.7-10.4); Carbon Dioxide 24 mmol/L (20-30); Chloride 110 mmol/L (98-107); Potassium 4.4 mmol/L (3.5-5.1); Sodium 140 mmol/L (136-145)
[2024-06-29 07:23] LABS: Hematocrit 23.8 % (36.0-46.0); Mean Corpuscular Hemoglobin 31.5 pg (28.0-32.0); Mean Corpuscular Hgb Conc. 33.9 g/dL (32.0-36.0); Mean Corpuscular Volume 92.9 fL (80.0-100.0); Platelet Count (auto) 390 10^3/uL (140-450); Red Cell Distribution Width 16.3 % (11.8-14.3)
[2024-06-29 07:24] LABS: BUN/Creatinine Ratio 21.7 (10.0-20.0); Blood Urea Nitrogen 30 mg/dL (9-23); Glucose 93 mg/dL (74-106)
[2024-06-29 07:30] LABS: Basophils % (manual) 0 (0.0-2.0); Blast Cells 0; Metamyelocytes % 0; Myelocytes % 0; Promyelocytes % 0; Reactive Lymphocytes 0
[2024-06-29 08:12] VITALS: RESP 19
[2024-06-29 08:21] LABS: Eosinophils % (manual) 10 (0-7); Monocytes % (manual) 7 (0-12)
[2024-06-29 08:22] LABS: Anisocytosis Slight; Band Neutrophils % (manual) 2; Lymphocytes % (manual) 23 (10.0-50.0); Platelet Estimate Adequate
[2024-06-29 09:00] VITALS: BP 162/63; PULSE 87; RESP 18; TEMP 98.1; O2SAT 96
[2024-06-29] MEDS: DOXYCYCLINE 100 MG TAB/CAP PO SCH (10:00)
[2024-06-29 17:42] VITALS: BP 157/74; PULSE 94; RESP 18; TEMP 98; O2SAT 98
[2024-06-29 21:00] VITALS: BP 151/78; PULSE 92; RESP 20; TEMP 98.9; O2SAT 93
[2024-06-30] VITALS (7 sets, daily range): BP systolic 123–159; BP diastolic 55–82; PULSE 69–112; RESP 17–20; TEMP 97.7–98.4; O2SAT 92–97
[2024-06-30 06:41] LABS: Basophils # (auto) 0 10 ^3/uL (0-0.2); Monocytes # (auto) 0.4 10 ^3/uL (0-1.3); Red Cell Distribution Width 16.4 % (11.8-14.3); White Blood Cell 8.3 10^3/uL (4.4-10.8)
[2024-06-30 06:45] LABS: Basophils % (auto) 0.4 % (0.0-2.0); Eosinophils # (auto) 0.9 10 ^3/uL (0-0.8); Eosinophils % (auto) 10.5 % (0.0-7.0); Hemoglobin 8.1 g/dL (12.2-16.2); Lymphocytes % (auto) 12.6 % (10.0-50.0); Mean Corpuscular Hemoglobin 31.6 pg (28.0-32.0); Mean Corpuscular Hgb Conc. 33.8 g/dL (32.0-36.0); Mean Corpuscular Volume 93.3 fL (80.0-100.0); Monocytes % (auto) 5.2 % (0.0-12.0); Neutrophils # (auto) 5.9 10 ^3/uL (1.6-8.6); Neutrophils % (auto) 71.3 % (37.0-80.0); Nucleated Red Blood Cells % 0.1 %; Platelet Count (auto) 387 10^3/uL (140-450); Red Blood Cells 2.57 10^6/uL (4.0-5.20)
[2024-06-30] MEDS: METOPROLOL TARTRATE 25 MG TAB PO SCH ×2 (07:57→20:35)
[2024-07-01 05:00] VITALS: BP 118/73; PULSE 77; RESP 18; TEMP 98.1; O2SAT 93
[2024-07-01 08:05] VITALS: PULSE 79; RESP 17
[2024-07-01 09:15] VITALS: BP_SYST 131; BP_SYST 179; BP_DIAS 59; BP_DIAS 69; PULSE 79; PULSE 89; RESP 17; TEMP 98.3; TEMP 98.4; O2SAT 97; O2SAT 98
[2024-07-01 12:32] VITALS: BP_SYST 150; BP_SYST 158; BP_DIAS 59; BP_DIAS 75; PULSE 100; PULSE 72; RESP 16; RESP 17; TEMP 98.1; TEMP 98.3; O2SAT 97
[2024-07-01 17:40] VITALS: BP 166/73; PULSE 78; RESP 16; TEMP 98.7; O2SAT 95
[2024-07-01 21:00] VITALS: BP 146/67; PULSE 76; RESP 16; TEMP 97.7; O2SAT 96
[2024-07-02 05:00] VITALS: BP 146/65; PULSE 71; RESP 18; TEMP 97.8; O2SAT 97
[2024-07-02 08:00] VITALS: BP 154/84; PULSE 70; RESP 16; RESP 8; TEMP 97.4; O2SAT 100
[2024-07-02 12:00] VITALS: BP 138/84; PULSE 71; RESP 16; TEMP 98; O2SAT 96
[2024-07-02 16:00] VITALS: BP 145/75; PULSE 76; RESP 16; TEMP 98; O2SAT 94
[2024-07-02 20:20] VITALS: PULSE 78; RESP 17; O2SAT 96
[2024-07-02 21:00] VITALS: BP 144/76; PULSE 78; RESP 17; TEMP 98.2; O2SAT 93
[2024-07-03 05:00] VITALS: BP 146/76; PULSE 70; RESP 17; TEMP 97.8; O2SAT 95
[2024-07-03 06:16] LABS: Basophils # (auto) 0.1 10 ^3/uL (0-0.2); Eosinophils # (auto) 0.8 10 ^3/uL (0-0.8); Neutrophils # (auto) 3.3 10 ^3/uL (1.6-8.6)
[2024-07-03 06:18] LABS: Eosinophils % (auto) 12.8 % (0.0-7.0); Hematocrit 24.3 % (36.0-46.0); Hemoglobin 8.2 g/dL (12.2-16.2); Lymphocytes # (auto) 1.8 10 ^3/uL (0.4-5.4); Lymphocytes % (auto) 27.1 % (10.0-50.0); Mean Corpuscular Hemoglobin 31.4 pg (28.0-32.0); Mean Corpuscular Hgb Conc. 33.6 g/dL (32.0-36.0); Mean Corpuscular Volume 93.7 fL (80.0-100.0); Monocytes # (auto) 0.5 10 ^3/uL (0-1.3); Monocytes % (auto) 8.1 % (0.0-12.0); Nucleated Red Blood Cells % 0.1 %; Platelet Count (auto) 314 10^3/uL (140-450); Red Cell Distribution Width 17.2 % (11.8-14.3); White Blood Cell 6.5 10^3/uL (4.4-10.8)
[2024-07-03 06:22] LABS: Chloride 112 mmol/L (98-107); Potassium 4.1 mmol/L (3.5-5.1); Sodium 141 mmol/L (136-145)
[2024-07-03 06:23] LABS: Anion Gap 2 (5-15); Carbon Dioxide 27 mmol/L (20-30)
[2024-07-03 06:24] LABS: Calcium 9.1 mg/dL (8.7-10.4)
[2024-07-03 06:28] LABS: BUN/Creatinine Ratio 19.2 (10.0-20.0); Blood Urea Nitrogen 24 mg/dL (9-23); Glucose 89 mg/dL (74-106)
[2024-07-03 08:00] VITALS: PULSE 92; RESP 18; O2SAT 96
[2024-07-03 08:46] VITALS: BP 155/75; PULSE 75; RESP 16; TEMP 97.8; O2SAT 94
[2024-07-03] MEDS: levoFLOXacin 250 MG TAB PO SCH (10:00)
[2024-07-03 12:26] VITALS: BP 152/72; PULSE 67; RESP 17; TEMP 97.7; O2SAT 92
[2024-07-03 16:18] VITALS: BP 156/74; PULSE 64; RESP 16; TEMP 98.1; O2SAT 94
[2024-07-03 21:00] VITALS: BP 172/84; PULSE 101; RESP 19; TEMP 98; O2SAT 95
[2024-07-03] MEDS: METOPROLOL TARTRATE 25 MG TAB PO ONE (21:23)
[2024-07-04 01:00] VITALS: BP 165/81; PULSE 89; RESP 19; TEMP 99.8; O2SAT 91
[2024-07-04 05:00] VITALS: BP 133/54; PULSE 99; RESP 19; TEMP 99.9; O2SAT 90
[2024-07-04 09:00] VITALS: BP 124/57; PULSE 80; RESP 14; TEMP 97.9; O2SAT 95
[2024-07-04 10:17] VITALS: BP 152/78; PULSE 91; TEMP 37.7
== END 2024-07-04 12:00 | disposition home health service (06) | DRG 871 ==
LOC: ER 13:07 → EDBD 13:07 → TELE 17:52 → TELE-EAST 23:17 → EAST 06-23 22:40
PROVIDERS: ADMIT Internal Medicine; ATTEND Emergency Medicine
PROC: 0S9D3ZZ Drainage of Left Knee Joint, Percutaneous Approach (ICD-10-PCS; principal; 2024-06-23)
PROC: 30233N1 Transfusion of Nonautologous Red Blood Cells into Peripheral Vein, Percutaneous Approach (ICD-10-PCS; 2024-06-27)
DX: A41.9 Sepsis, unspecified organism (principal); I21.A1 Myocardial infarction type 2; J18.9 Pneumonia, unspecified organism; N17.0 Acute kidney failure with tubular necrosis; J96.01 Acute respiratory failure with hypoxia; L03.116 Cellulitis of left lower limb; J44.0 Chronic obstructive pulmonary disease with (acute) lower respiratory infection; D68.59 Other primary thrombophilia; I13.0 Hypertensive heart and chronic kidney disease with heart failure and stage 1 through stage 4 chronic kidney disease, or unspecified chronic kidney disease; I50.32 Chronic diastolic (congestive) heart failure; Z20.822 Contact with and (suspected) exposure to COVID-19; D63.1 Anemia in chronic kidney disease; R74.01 Elevation of levels of liver transaminase levels; I48.0 Paroxysmal atrial fibrillation; I73.9 Peripheral vascular disease, unspecified; K21.9 Gastro-esophageal reflux disease without esophagitis; M06.9 Rheumatoid arthritis, unspecified; N18.32 Chronic kidney disease, stage 3b; Z74.01 Bed confinement status; Z79.1 Long term (current) use of non-steroidal anti-inflammatories (NSAID); Z79.899 Other long term (current) drug therapy; Z82.49 Family history of ischemic heart disease and other diseases of the circulatory system; Z80.1 Family history of malignant neoplasm of trachea, bronchus and lung; Z85.828 Personal history of other malignant neoplasm of skin; Z79.01 Long term (current) use of anticoagulants
CPT/HCPCS: 36415; 71045; 73590; 73718; 76942; 80048; 80053; 80061; 80202; 82270; 82306; 82607; 82728; 83036; 83540; 83550; 83605; 83735; 83880; 83986; 84443; 84484; 85007; 85025; 85027; 85652; 86141; 86850; 86900; 86901; 86920; 87040; 87205; 87426; 89051; 93005; 93306; 93926; 93971; 97110; 97116; 97163; 97530; C1729; G0378; J0692; J2470; J2543